=== PATIENT | male | born 1975 | race Caucasian/White ===

== ENCOUNTER 2019-06-12 08:41 | Emergency (ER) | payer OTHER ==
[2019-06-12 08:50] VITALS: BMI 28.0
[2019-06-12] MEDS ORDERED: ONDANSETRON *ODT* 4 MG TABLET SL ONE (09:00)
[2019-06-12] MEDS ORDERED: ONDANSETRON *ODT* 4 MG TABLET ONE (09:03)
[2019-06-12] MEDS ORDERED: SODIUM CHLORIDE 1,000 ML IV STA ×2 (09:36→11:33)
[2019-06-12] MEDS ORDERED: ACETAMINOPHEN 1000 MG/100 ML VIAL (NON FORMULARY) IVPB ONE (09:45)
[2019-06-12] MEDS ORDERED: ACETAMINOPHEN INJECTION 100 ML IVPB ONE (09:47)
--- NOTE | 2019-06-12 10:02 | PDOC ---
History of Present Illness - General Chief Complaint: Nausea/Vomiting Stated Complaint: VOMITTING Time Seen by Provider: 06/12/19 08:58 History Source: Patient Exam Limitations: No Limitations - History of Present Illness Travel History: No Initial Comments: 06/12/19 09:02 44-year-old male with no past medical history presents to ED with complaints of generalized fatigue, weakness, nausea vomiting 3 episodes of diarrhea headache, and poor by mouth intake since yesterday. Patient states completed triathlon and symptoms began shortly thereafter. Patient denies drug or alcohol use. Patient currently denies chest pain, shortness of breath, visual changes, dark- colored urine, or bloody stool. Timing/Duration: reports: constant Quality: reports: mild, cramping Abdominal Pain Onset Location: reports: generalized abdomen Pain Radiation: reports: no radiation Activities at Onset: reports: none Aggravating Factors: improves with: None Alleviating Factors: improves with: None Past History - Travel Traveled outside of the country in the last 30 days: No Close contact w/someone who was outside of country & ill: No - Past Medical History Allergies/Adverse Reactions: Allergies Allergy/AdvReac Type Severity Reaction Status Date / Time No Known Allergies Allergy Unverified 06/12/19 08:48 Home Medications: Ambulatory Orders Ondansetron HCl [Zofran] 4 mg PO TID PRN #12 tablet 06/12/19 COPD: No - Immunization History Immunization Up to Date: Yes - Suicide/Smoking/Psychosocial Hx Smoking History: Never smoked Hx Alcohol Use: Yes (social) Drug/Substance Use Hx: No Patient Lives Alone: No Lives with/in: spouse/SO Review of Systems - Review of Systems Able to Perform ROS?: No Is the patient limited Upper Sorbian proficient: No Constitutional: Yes: Chills, Weakness HEENTM: No: Symptoms Reported Respiratory: No: Symptoms reported Cardiac (ROS): No: Symptoms Reported ABD/GI: Yes: Nausea, Poor Appetite, Poor Fluid Intake, Vomiting, Abdominal cramping : No: Symptoms Reported Musculoskeletal: No: Symptoms Reported Integumentary: No: Symptoms Reported Neurological: Yes: Weakness Hematologic/Lymphatic: No: Symptoms Reported *Physical Exam - Vital Signs Last Vital Signs Temp Pulse Resp BP Pulse Ox 98.3 F 98 H 18 103/63 96 06/12/19 08:49 06/12/19 08:49 06/12/19 08:49 06/12/19 08:49 06/12/19 08:49 - Physical Exam General Appearance: Yes: Nourished, Appropriately Dressed. No: Apparent Distress HEENT: positive: EOMI, SHANNAN, TMs Normal. negative: Pharynx Normal (dry) Neck: positive: Supple Respiratory/Chest: positive: Lungs Clear, Normal Breath Sounds. negative: Respiratory Distress, Accessory Muscle Use Cardiovascular: positive: Regular Rhythm, Regular Rate. negative: Murmur Vascular Pulses: Dorsalis-Pedis (R): 2+, Doralis-Pedis (L): 2+ Integumentary: positive: Normal Color, Warm, Clammy (head/neck) Neurologic: positive: Motor Strength 5/5 (ambulatory) Heart Score/ECG Review - ECG Intrepretation Rhythm: Regular Rhythm (rate 78. normal sinus rhythm) ED Treatment Course - LABORATORY CBC & Chemistry Diagram: 06/12/19 09:31 06/12/19 09:31 - ADDITIONAL ORDERS Additional order review: Laboratory Results 06/12/19 09:42 POC Glucometer 124 06/12/19 09:42 POC Glucometer 124 - Medications Given in the ED: ED Medications Discontinued Medications Generic Name Dose Route Start Last Admin Trade Name Freq PRN Reason Stop Dose Admin Ondansetron HCl 4 mg 06/12/19 09:00 06/12/19 09:07 Zofran Odt - SL 06/12/19 09:01 4 mg ONCE ONE Administration Medical Decision Making - Medical Decision Making 06/12/19 09:00 Chief complaint: Nausea vomiting generalized fatigue poor by mouth intake chills , sweating and mild headache. Patient states symptoms began yesterday. Patient states did a triathlon yesterday and shortly thereafter symptoms began. Patient states has been trying to tolerate water but vomited shortly thereafter. Exam. Vital signs stable patient appears weak and dehydrated Plan: CBC, comp, magnesium, cardiac profile, EKG, IV fluids, Zofran IV Tylenol 06/12/19 11:22 Laboratory Tests 06/12/19 06/12/19 06/12/19 09:31 09:31 09:42 WBC 5.4 Hgb 16.5 Hct 48.4 Neutrophils % 87.1 H Lymphocytes % 5.8 L Sodium 142 Potassium 4.4 Chloride 106 Carbon Dioxide 27 Anion Gap 9 BUN 21.2 H Creatinine 1.4 H POC Glucometer 124 Random Glucose 120 H Magnesium 2.1 AST 24 ALT 27 Creatine Kinase Index 0.6 CK-MB (CK-2) 1.6 Troponin I < 0.02 Total Protein 7.4 Albumin 4.2 Patient tolerating salted saltines along with les taylor. Patient states feeling much better. Patient will be given a urine cup and discharge home 06/12/19 12:42 Laboratory Tests 06/12/19 11:30 Urine Ketones Trace Urine Nitrite Negative Ur Leukocyte Esterase Negative Pt unable to produce stool. pt given stool cup. *DC/Admit/Observation/Transfer Diagnosis at time of Disposition: Diarrhea, Vomiting - Discharge Dispostion Disposition: HOME Condition at time of disposition: Improved - Referrals - Patient Instructions Printed Discharge Instructions: DI for Diarrhea and Traveler's Diarrhea -- Adult, DI for Vomiting -- Adult, [place] Diet Additional Instructions: Follow a bland diet as recommended for the next 48 hours and advance as tolerated. As needed for nausea as recommended. Please follow-up with your primary care physician and bring specimen of stool with you. Keep specimen in the fridge if able to collect prior to your visit. - Post Discharge Activity
[2019-06-12 10:07] LABS: BASO % 0.2 % (0-2.0); EOS % 0.4 % (0-4.5); HEMATOCRIT 48.4 % (35.4-49); HEMOGLOBIN 16.5 GM/dL (11.7-16.9); LYMPH % 5.8 % (8-40); MCH 31.5 pg (25.7-33.7); MCHC 34.1 g/dl (32.0-35.9); MEAN CELL VOLUME 92.4 fl (80-96); MEAN PLT VOLUME 8.5 fl (7.5-11.1); MONO % 6.5 % (3.8-10.2); NEUT % 87.1 % (42.8-82.8); PLATELET COUNT 198 K/MM3 (134-434); RBC 5.24 M/mm3 (4.00-5.60); RDW 13.7 % (11.9-15.9); WHITE BLOOD COUNT 5.4 K/mm3 (4.0-10.0)
[2019-06-12 10:26] LABS: ALBUMIN 4.2 g/dl (3.4-5.0); ALK PHOS 69 U/L (45-117); ANION GAP 9 MMOL/L (8-16); BILIRUBIN,TOTAL 0.8 mg/dL (0.2-1); BLOOD UREA NITROGEN 21.2 mg/dL (7-18); CALCIUM 9.2 mg/dL (8.5-10.1); CHLORIDE 106 mmol/L (98-107); CO2 27 mmol/L (21-32); CREATININE 1.4 mg/dL (0.55-1.3); GLUCOSE,RANDOM 120 mg/dL (74-106); MAGNESIUM 2.1 mg/dL (1.8-2.4); POTASSIUM 4.4 mmol/L (3.5-5.1); SGOT/AST 24 U/L (15-37); SGPT/ALT 27 U/L (13-61); SODIUM 142 mmol/L (136-145); TOT PROT 7.4 g/dl (6.4-8.2)
[2019-06-12] MEDS ORDERED: ONDANSETRON 4 MG/2 ML VIAL ONE (10:52)
[2019-06-12] MEDS ORDERED: ONDANSETRON 4 MG/2 ML VIAL IVPUSH ONE (10:53)
--- NOTE | 2019-06-12 11:30 | EKG ---
Test Reason : Blood Pressure : / mmHG Vent. Rate : 078 BPM Atrial Rate : 078 BPM P-R Int : 200 ms QRS Dur : 084 ms QT Int : 360 ms P-R-T Axes : 071 074 042 degrees QTc Int : 410 ms NORMAL SINUS RHYTHM NORMAL ECG NO PREVIOUS ECGS AVAILABLE Confirmed by SHERYL PATEL MD ([id number]) on 06/12/2019 11:29:54 AM Referred By: Confirmed By:SHERYL PATEL MD
[2019-06-12 11:57] VITALS: BP 105/61; PULSE 74; TEMP 97.8
[2019-06-12 12:21] LABS: PH,URINE 6.5 (5.0-8.0); URINE APPEARANCE Clear; URINE BILIRUBIN Negative (NEGATIVE); URINE COLOR Yellow; URINE GLUCOSE (UA) Trace (NEGATIVE); URINE KETONE Trace (NEGATIVE); URINE LEUK ESTERASE Negative (NEGATIVE); URINE NITRITE Negative (NEGATIVE); URINE PROTEIN Trace (NEGATIVE); URINE UROBILINOGEN 0.2 mg/dL (0.2-1.0)
== END 2019-06-12 12:59 | disposition home or self-care (01) ==
LOC: JER 08:41
PROC: 3E033NZ Introduction of Analgesics, Hypnotics, Sedatives into Peripheral Vein, Percutaneous Approach (ICD-10-PCS; principal; 2019-06-12)
PROC: 3E0337Z Introduction of Electrolytic and Water Balance Substance into Peripheral Vein, Percutaneous Approach (ICD-10-PCS; 2019-06-12)
PROC: 3E033GC Introduction of Other Therapeutic Substance into Peripheral Vein, Percutaneous Approach (ICD-10-PCS; 2019-06-12)
DX: R11.2 Nausea with vomiting, unspecified (principal); R19.7 Diarrhea, unspecified
CPT/HCPCS: 36415; 80053; 81003; 82550; 82553; 82962; 83735; 84484; 85025; 87086; 93005; 93010; 99283-25; J0131; J7030; Q0162

== ENCOUNTER 2020-09-12 21:29 | Emergency (ER) | payer OTHER ==
[2020-09-12 22:05] VITALS: BP 121/74; PULSE 75; TEMP 97.6; BMI 28.0
== END 2020-09-13 11:01 | disposition home or self-care (01) ==
LOC: JERFT 21:29 → JER 21:29 → JERFT 09-13 11:01
DX: S52.501A Unspecified fracture of the lower end of right radius, initial encounter for closed fracture (principal)
CPT/HCPCS: 73070-TC-RT-FY; 99283-25

== ENCOUNTER 2025-02-26 09:05 | Emergency (ER) | payer OTHER ==
[2025-02-26 09:09] VITALS: BP 118/78; PULSE 83; RESP 18; TEMP 97.8; BMI 31.0
== END 2025-02-26 10:05 | disposition home or self-care (01) ==
LOC: JERFT 09:05
DX: J30.2 Other seasonal allergic rhinitis (principal); R09.81 Nasal congestion; R05.9 Cough, unspecified; J02.9 Acute pharyngitis, unspecified
CPT/HCPCS: 0241U-QW; 99283-25